=== PATIENT | male | born 1985 | race Caucasian/White ===

== ENCOUNTER → 2020-07-04 08:25 | Outpatient (CLI) | payer OTHER, SELFPAY ==
[2020-07-04 10:03] LABS: ALB/GLOB Ratio 1.2 RATIO (0.9-2.4); AST(SGOT) 66 U/L (15-37); Alanine Aminotransfer ALT/SGPT 40 U/L (16-61); Albumin, Serum 3.8 g/dL (3.2-5.0); Alkaline Phosphatase 69 U/L (45-117); Anion Gap 6 (5-15); BUN 14 mg/dL (7-18); BUN/Creat Ratio 14.2 RATIO (10-20); Calcium,Total 8.9 mg/dL (8.5-10.1); Chloride 107 mmol/L (98-107); Cholesterol 149 mg/dL (200); Creatinine, Serum 0.99 mg/dL (0.70-1.30); EST Glomerular Filtration Rate 93 mL/min (>60); Est Glom Filt Rate - Afr Amer 112 mL/min (>60); Globulin 3.3 g/dL (2.2-4.2); Glucose 95 mg/dL (74-106); High Density Lipoprotein 43 mg/dL; Potassium 3.9 mmol/L (3.5-5.1); Protein, Total 7.1 g/dL (6.4-8.2); Sodium Level 140 mmol/L (136-145); Triglycerides 81 mg/dL; Very Low Density Lipoprotein 16 mg/dL (5-40)
== END ==
PROVIDERS: PCP Family Medicine; Referring Provider Family Medicine; Visit Provider Family Medicine
DX: I10 Essential (primary) hypertension (principal)
CPT/HCPCS: 36415; 80053; 80061

== ENCOUNTER → 2021-01-09 14:22 | Outpatient (CLI) | payer OTHER, SELFPAY ==
--- NOTE | 2021-01-09 14:29 | US_ITS ---
STUDY: SUPERFICIAL ULTRASOUND - RIGHT FOREARM REASON FOR EXAM: Male, 35 years old. RIGHT MID FOREARM MASS TECHNIQUE: A superficial ultrasound was performed with real-time and static parker-scale imaging. COMPARISON: None. FINDINGS: Ultrasound evaluation of the right forearm, in the area of concern, shows a subcutaneous 0.7 x 0.8 x 0.3 cm well-defined nodule this likely represents a involuted sebaceous cyst. There is no sonographic evidence of a suspicious abnormality, there is no hyperemia or subcutaneous fluid. US/Ext Non Vasc Limited/Soft Tiss IMPRESSION: Likely involuted sebaceous cyst. No suspicious sonographic findings Electronically Signed: Jerry Carvajal MD at 15:16 EDT , Service support ,
== END ==
PROVIDERS: PCP Family Medicine; Referring Provider Family Medicine; Visit Provider Family Medicine
DX: R22.30 Localized swelling, mass and lump, unspecified upper limb (principal)
CPT/HCPCS: 76882

== ENCOUNTER → 2021-07-28 08:43 | Outpatient (CLI) | payer OTHER, SELFPAY ==
[2021-07-28 10:56] LABS: Anion Gap 8 (5-15); BUN 14 mg/dL (7-18); BUN/Creat Ratio 14.5 RATIO (10-20); Calcium,Total 9.1 mg/dL (8.5-10.1); Chloride 106 mmol/L (98-107); Cholesterol 181 mg/dL (200); Creatinine, Serum 0.96 mg/dL (0.70-1.30); EST Glomerular Filtration Rate 95 mL/min (>60); Est Glom Filt Rate - Afr Amer 114 mL/min (>60); Glucose 88 mg/dL (74-106); High Density Lipoprotein 46 mg/dL; Potassium 4.3 mmol/L (3.5-5.1); Sodium Level 141 mmol/L (136-145); Triglycerides 128 mg/dL; Very Low Density Lipoprotein 26 mg/dL (5-40)
== END ==
PROVIDERS: PCP Registered Nurse; Referring Provider Registered Nurse; Visit Provider Registered Nurse
DX: I10 Essential (primary) hypertension (principal)
CPT/HCPCS: 36415; 80048; 80061

== ENCOUNTER → 2021-07-28 13:00 | Outpatient (CLI) | payer OTHER, SELFPAY ==
--- NOTE | 2021-07-28 13:24 | CDU_ITS ---
Reason For Study: CAROTID BRUIT Rt. Velocities/BP Lt. Velocities/BP Prox CCA 179.1/16.7 cm/sec. Prox CCA 201.0/27.7 cm/sec. Mid CCA 159.3/18.9 cm/sec. Mid CCA 146.2/23.3 cm/sec. Dist CCA 102.3/14.5 cm/sec. Dist CCA 133.0/21.1 cm/sec. Prox ICA 80.3/25.5 cm/sec. Prox ICA 67.2/23.3 cm/sec. Mid ICA 86.9/23.0 cm/sec. Mid ICA 60.5/21.1 cm/sec. Dist ICA 93.5/25.5 cm/sec. Dist ICA 86.8/32.0 cm/sec. Rt. ICA/CCA = .6. Lt. ICA/CCA = .6. Prox ECA 117.6/14.5 cm/sec. Prox ECA 102.3/12.3 cm/sec. Rt. Vert. 62.8/23.3 cm/sec. Lt. Vert. 73.6/12.3 cm/sec. Right Extracranial There is intimal thickening but no significant atherosclerotic plaque noted in the right common carotid artery. There is no significant atherosclerotic plaque noted in the right internal carotid artery. There is intimal thickening but no significant atherosclerotic plaque noted in the right external carotid artery. Antegrade flow is noted in the right vertebral artery. There is homogeneous, smooth atherosclerotic plaque noted in the right bulb. Left Extracranial There is intimal thickening but no significant atherosclerotic plaque noted in the left common carotid artery. There is heterogeneous, smooth atherosclerotic plaque noted in the left internal carotid artery. There is homogeneous, smooth atherosclerotic plaque noted in the left external carotid artery. Antegrade flow is noted in the left vertebral artery. Procedure Carotid Duplex [id number]. Exam performed in department. VL/Carotid Duplex Ultrasound Interpretation Summary No hemodynamically significant plaque is identified in bilateral common carotid s, carotid bulbs, or internal carotid arteries Less than 50% stenosis bilateral internal carotid arteries Less than 50% stenosis bilateral external carotid arteries Patent and antegrade vertebral arteries bilaterally Bilateral proximal common carotid velocities are elevated of undetermined signi ficance. Clinical correlation regarding cardiac output or more central circulation would be appro priate. Ordering Physician: Ambar Hodge Referring Physician: AMBAR HODGE Performed By: Haley Spence, DESHAWN, RVT
== END ==
PROVIDERS: PCP Registered Nurse; Visit Provider Registered Nurse
DX: R09.89 Other specified symptoms and signs involving the circulatory and respiratory systems (principal)
CPT/HCPCS: 93880

== ENCOUNTER → 2021-08-18 14:18 | Outpatient (CLI) | payer OTHER, SELFPAY ==
--- NOTE | 2021-08-18 14:25 | RAD_ITS ---
STUDY: X-RAY - RIGHT KNEE REASON FOR EXAM: Male, 36 years old. KNEE PAIN TECHNIQUE: 3 view(s) of the knee. COMPARISON: None. FINDINGS: Normal visualized distal femur. Normal visualized proximal tibia and fibula. Normal proximal tibiofibular articulation. Normal medial femorotibial compartment. Normal lateral femorotibial compartment. Normal patellofemoral articulation. The soft tissue structures are unremarkable. RAD/Knee 3 Views IMPRESSION: Normal x-ray examination of the knee. Electronically Signed: Jerry Carvajal MD at 17:19 EST , Service support ,
== END ==
PROVIDERS: PCP Registered Nurse; Referring Provider Registered Nurse; Visit Provider Registered Nurse
DX: M25.561 Pain in right knee (principal)
CPT/HCPCS: 73562